=== PATIENT | female | born 1995 | race Caucasian/White ===

== ENCOUNTER 2019-04-01 15:36 | Emergency (ER) | payer BC ==
[2019-04-01] MEDS ORDERED: ACETAMINOPHEN 325 MG TABLET PO ONE (16:12)
--- NOTE | 2019-04-01 16:13 | ER Document Report ---
ED Medical Screen (RME) - General Chief Complaint: Eye Injury Stated Complaint: FAINTED Time Seen by Provider: 04/01/19 16:07 Notes: Patient is a 24 y/o female who presents after a fall this morning around 10. She was going up the stairs outside and can not recall what she hit her head on. e Admits to loosing consciousness for a few minutes. States she sometimes will get low blood sugar and feel like she will pass out. Exam: Tenderness to left superior orbital bone area. Eccymosis noted to left upper eye lid. I have greeted and performed a rapid initial assessment of this patient. A comprehensive ED assessment and evaluation of the patient, analysis of test results and completion of medical decision making process will be conducted by an additional ED providers. - Related Data Allergies/Adverse Reactions: broccoli Allergy (Verified 04/01/19 16:05) guaifenesin [From Robitussin] Allergy (Verified 04/01/19 16:05) Physical Exam - Vital signs Vitals: Temp Pulse Resp BP Pulse Ox 98.2 F 99 20 123/77 98 04/01/19 15:43 04/01/19 15:43 04/01/19 15:43 04/01/19 15:43 04/01/19 15:43 Course - Vital Signs Vital signs: Temp Pulse Resp BP Pulse Ox 98.2 F 99 20 123/77 98 04/01/19 15:43 04/01/19 15:43 04/01/19 15:43 04/01/19 15:43 04/01/19 15:43
--- NOTE | 2019-04-01 17:34 | RADIOLOGY REPORT (SQ) ---
EXAM DESCRIPTION: CT FACIAL AREA WITHOUT COMPLETED DATE/TIME: 04/01/2019 5:13 pm REASON FOR STUDY: fall COMPARISON: None. TECHNIQUE: Noncontrasted images through the facial bones and orbits windowed for bone and soft tissu e. Additional coronal and sagittal reconstructed images reviewed. All images stored on PACS. All CT scanners at this facility use dose modulation, iterative reconstruction, and/or weight based d osing when appropriate to reduce radiation dose to as low as reasonably achievable (ALARA). [facility]: Dose Right [facility]: CareDose [facility]: Dose Right [facility]: Teradose 4D [facility]: [employer] RADIATION DOSE: CT Rad equipment meets quality standard of care and radiation dose reduction techniq ues were employed. CTDIvol: 30.4 mGy. DLP: 597 mGy-cm. mGy. LIMITATIONS: None. FINDINGS: FACIAL BONES: No fracture or bone lesion. ORBITS: Intact. No fracture. Symmetric intact globes and retroorbital soft tissues. PARANASAL SINUSES: Clear. No significant mucosal thickening, mass or fluid. No nasal polyps. Maxill kanchan sinus outlets are patent. SOFT TISSUES: No mass or edema. INFERIOR BRAIN: Limited view. No acute findings. OTHER: No other significant finding. IMPRESSION: NO ACUTE FINDINGS. TECHNICAL DOCUMENTATION: JOB ID: [id number] [place]-72 Quality ID # [id number]: Final reports with documentation of one or more dose reduction techniques (e.g., Au tomated exposure control, adjustment of the mA and/or kV according to patient size, use of iterative reconstruction technique) 2010 [employer]- All Rights Reserved Reading location - IP/workstation name: [employer]
--- NOTE | 2019-04-01 17:37 | ER Document Report ---
ED General - General Chief Complaint: Syncope Stated Complaint: FAINTED Time Seen by Provider: 04/01/19 16:07 Primary Care Provider: SAMI MCDANIEL MD [ACTIVE STAFF] - Follow up as needed Notes: RME NOTE: Patient is a 24 y/o female who presents after a fall this morning around 10. She was going up the stairs outside and can not recall what she hit her head on. e Admits to loosing consciousness for a few minutes. States she sometimes will get low blood sugar and feel like she will pass out. Exam: Tenderness to left superior orbital bone area. Eccymosis noted to left upper eye lid. MY HPI: Patient is a 24-year-old female suffers from hypoglycemia presents to the emergency department for ecchymosis noted to the left eyelid. Patient states this morning she was walking up the stairs and she feels as though her sugars were low. States she typically has sugar tablets but did let them inside. States she fell hitting the left side of her head on the stair. Patient initially felt as though she lost consciousness but states now that she is been thinking about it she remembers the entire event to states she felt generalized weakness until she ate her sugar tablets. Patient voices she does not have a glucometer at home. States she has no follow-up as she is uninsured. Patient's only complaint at this time is generalized pain over the left superior orbital bone with ecchymosis noted to left upper lid. Patient's right any change in vision, blurred vision, dizziness, headache, weakness. - Related Data Allergies/Adverse Reactions: broccoli Allergy (Verified 04/01/19 16:05) guaifenesin [From Robitussin] Allergy (Verified 04/01/19 16:05) Past Medical History - General Information source: Patient - Social History Smoking Status: Current Every Day Smoker Frequency of alcohol use: Occasional Drug Abuse: None Family History: Reviewed & Not Pertinent Patient has suicidal ideation: No Patient has homicidal ideation: No Review of Systems - Review of Systems Constitutional: denies: Fever EENT: See HPI Cardiovascular: No symptoms reported Respiratory: No symptoms reported Gastrointestinal: No symptoms reported Genitourinary: No symptoms reported Female Genitourinary: No symptoms reported Musculoskeletal: See HPI Skin: See HPI Hematologic/Lymphatic: No symptoms reported Neurological/Psychological: See HPI Physical Exam - Vital signs Vitals: Temp Pulse Resp BP Pulse Ox 98.2 F 99 20 123/77 98 04/01/19 15:43 04/01/19 15:43 04/01/19 15:43 04/01/19 15:43 04/01/19 15:43 - Notes Notes: GENERAL: Alert, interacts well. No acute distress. HEAD: Normocephalic. EYES: Pupils equal, round, and reactive to light. Extraocular movements intact and painless. Generalized ecchymosis noted left upper lid, no proptosis, pain upon palpation left superior orbital bone. ENT: Oral mucosa moist, tongue midline. Nares patent, no nasal septal hematoma, TM's intact, no hemotympanum noted bilaterally. NECK: Full range of motion. Supple. Trachea midline. LUNGS: Clear to auscultation bilaterally, no wheezes, rales, or rhonchi. No respiratory distress. HEART: Regular rate and rhythm. No murmur ABDOMEN: Soft, non-tender. Non-distended. Bowel sounds present in all 4 quadrants. EXTREMITIES: Moves all 4 extremities spontaneously. No edema, normal radial and dorsalis pedis pulses bilaterally. No cyanosis. BACK: no cervical, thoracic, lumbar midline tenderness. No saddle anesthesia, normal distal neurovascular exam. NEUROLOGICAL: Alert and oriented x3. Normal speech. cranial nerves II through XII grossly intact PSYCH: Normal affect, normal mood. SKIN: Warm, dry, normal turgor. Course - Re-evaluation Re-evalutation: 04/01/19 19:40 Laboratory 04/01/19 04/01/19 16:15 18:59 POC Glucose 95 Urine Color DARK YELLOW Urine Appearance TURBID Urine pH 5.0 Ur Specific [place] 1.023 Urine Protein 30 H Urine Glucose (UA) NEGATIVE Urine Ketones 20 H Urine Blood SMALL H Urine Nitrite NEGATIVE Urine Bilirubin NEGATIVE Urine Urobilinogen NEGATIVE Ur Leukocyte Esterase LARGE H Urine WBC (Auto) 45 Urine RBC (Auto) 18 Squamous Epi Cells Auto 106 Urine Mucus (Auto) MANY Urine Ascorbic Acid NEGATIVE Urine HCG, Qual NEGATIVE Facial Bones CT 04/01/19 16:12 IMPRESSION: NO ACUTE FINDINGS. Patient's urine shows signs of dehydration with elevated specific gravity and ketones. Discussed use of fluid rehydration in the emergency department. Patient voices she will drink fluids and does not want IV access at this time. Patient CT showed no signs of acute findings. Discussed following up with primary care provider, return precautions discussed. At this time will discharge with return precautions and follow-up recommendations. Verbal discharge instructions given a the bedside and opportunity for questions given. Medication warnings reviewed. Patient is in agreement with this plan and has verbalized understanding of return precautions and the need for primary care follow-up in the next 24-72 hours. This medical record was dictated with voice recognizing software. There may be grammatical, syntax errors that are unintended. - Vital Signs Vital signs: Temp Pulse Resp BP Pulse Ox 98.2 F 99 20 123/77 98 04/01/19 15:43 04/01/19 15:43 04/01/19 15:43 04/01/19 15:43 04/01/19 15:43 - Laboratory Laboratory results interpreted by me: 04/01/19 18:59 Urine Protein 30 H Urine Ketones 20 H Urine Blood SMALL H Ur Leukocyte Esterase LARGE H Discharge - Discharge Clinical Impression: Near syncope Ecchymosis of eye Qualifiers: Encounter type: initial encounter Laterality: left Qualified Code(s): S05.12XA - Contusion of eyeball and orbital tissues, left eye, initial encounter Condition: Stable Disposition: HOME, SELF-CARE Additional Instructions: As we discussed you have been seen and treated in the emergency department for an injury to your left eye. Your images show no signs of broken bones. Your urine does show you are dehydrated. Please make sure you continue to stay well- hydrated by drinking Gatorade, Pedialyte, water. Please follow-up with a primary care provider in the next 24 to 48 hours. Return to the emergency room for any concerns. Referrals: SAMI MCDANIEL MD [ACTIVE STAFF] - Follow up as needed
[2019-04-01 19:27] LABS: APPEARANCE,URINE TURBID; BILIRUBIN,URINE NEGATIVE (NEGATIVE); GLUCOSE, URINE NEGATIVE (NEGATIVE); KETONES,URINE 20 mg/dL (NEGATIVE); LEUKOCYTE ESTERASE,URINE LARGE (NEGATIVE); NITRITE,URINE NEGATIVE (NEGATIVE); PROTEIN,URINE 30 mg/dL (NEGATIVE); URINE SPECIFIC GRAVITY 1.023; UROBILINOGEN,URINE NEGATIVE mg/dL (<2.0)
[2019-04-01 19:33] LABS: COLOR,URINE DARK YELLOW
[2019-04-01 20:30] VITALS: BP 106/58
--- NOTE | 2019-04-02 09:12 | EKG REPORT ---
SEVERITY:- OTHERWISE NORMAL ECG - SINUS RHYTHM BORDERLINE RIGHT AXIS DEVIATION : Confirmed by: Cherri Juan 02-Apr-2019 09:12:13
== END 2019-04-01 20:50 | disposition home or self-care (01) ==
LOC: ER 15:36
DX: R55 Syncope and collapse (principal); S05.12XA Contusion of eyeball and orbital tissues, left eye, initial encounter; W10.9XXA Fall (on) (from) unspecified stairs and steps, initial encounter; F17.200 Nicotine dependence, unspecified, uncomplicated
CPT/HCPCS: 70486; 81001; 81025; 82962; 87086; 93005; 93010; 99284